=== PATIENT | male | born 1995 | race Caucasian/White ===

== ENCOUNTER 2019-04-24 16:50 | Inpatient (IN) ==
--- NOTE | 2019-04-24 17:25 | Emergency Department Note ---
Disposition Clinical Impression: Suicidal ideation Disposition: Admitted As Inpatient Condition: Fair Forms: ED Satisfaction Letter Time of Disposition: 21:55 General Adult HPI - General Chief complaint: ED Psychiatric Symptoms Stated complaint: SI Time Seen by Provider: 04/24/19 16:53 Source: patient, EMS Nursing Notes Reviewed: Yes Vital Signs Reviewed: Yes ( history:) - History of Present Illness HPI Narrative: Presents with suicidal ideation and planned to hang himself. He had suicidal ideation back in January. History of intravenous drug use but has not used in over 1 year. Was living with his aunt and uncle in [place] but now is living in a rehabilitation facility here to try to get off marijuana. Does have some visual and auditory hallucinations. He denies any pain in the head, neck, chest, ab domen or back. No unilateral numbness or weakness of the extremities, slurred speech, facial droop or confusion. Social history: Smoker Pain Scale: 0 - Related Data Home Medications Medication Instructions Recorded Confirmed Methocarbamol [Robaxin-750] 750 mg PO BID 05/05/15 05/05/15 Naproxen [Naprosyn] 500 mg PO BID 05/05/15 05/05/15 Sulfamethoxazole/Trimeth DS 1 each PO BID 05/05/15 05/05/15 [Bactrim DS] Previous Rx's Medication Instructions Recorded predniSONE [PredniSONE] 40 mg PO DAILY 5 Days tablet 05/05/15 Allergies Allergy/AdvReac Type Severity Reaction Status Date / Time codeine Allergy Hives Verified 05/05/15 10:15 All systems ED: reviewed and negative except as stated. Past Medical History - Past Medical History Medical history: Reports: no medical history Surgical history: Reports: herniorrhaphy Psychiatric history: Reports: anxiety, bipolar, depression, panic disorder, PTSD, prior suicide attempt - Social History Smoking Status: Current every day smoker Smokeless Tobacco Status: No Alcohol use: Reports: none Drug use: Reports: marijuana Physical Exam CONSTITUTIONAL: Alert and oriented X3, well-nourished, well appearing, in no apparent distress HEAD: Normocephalic; atraumatic. EYES: PERRL, no scleral icterus. NOSE: The nose is normal in appearance without rhinorrhea RESP: Normal chest excursion with respiration; breath sounds clear and equal bilaterally; no wheezes, rhonchi, or rales CARD: Regular rhythm, without murmurs, rub or gallop ABD: Non-distended; non-tender, soft,without rigidity, rebound or guarding SKIN: Normal for age and race; warm and dry; no apparent lesions - General General appearance: alert Course Vital Signs Temperature 98.3 F 04/24/19 17:09 Pulse Rate 86 04/24/19 17:09 Respiratory Rate 17 04/24/19 17:09 Blood Pressure 120/81 04/24/19 17:09 O2 Sat by Pulse Oximetry 100 04/24/19 17:09 Temperature 98.3 F 04/24/19 17:09 Pulse Rate 86 04/24/19 17:09 Respiratory Rate 17 04/24/19 17:09 Blood Pressure 120/81 04/24/19 17:09 O2 Sat by Pulse Oximetry 100 04/24/19 17:09 Oxygen Delivery Oxygen Delivery Room Air Medical Decision Making - MDM Narrative Medical decision making narrative: Psychiatric labs are ordered, patient has had issues both with substance abuse as well as mental health issues. We will consult [facility] to see the patient after the results return but the patient is acutely suicidal at this time per he does have a sitter at the room. 1725 I did speak with 1A and they will like the patient admitted here under their service. 2155 - Medical Records Medical records reviewed: Yes I reviewed the patient's medical records. - Lab Data Lab results reviewed: Yes I reviewed the patient's lab results. Result diagrams: 04/24/19 17:29 04/24/19 17:29 Lab Results 04/24/19 04/24/19 04/24/19 Range/Units 17:21 17:21 17:29 WBC 7.5 (4.3-11.1) K/mcL RBC 4.19 (4.19-5.50) M/mcL Hgb 14.0 (12.9-16.9) g/dL Hct 40.9 (37.5-50.1) % MCV 97.6 (83.0-100.0) fL MCH 33.4 H (28.0-33.3) pg MCHC 34.2 (31.6-35.5) g/dL RDW 13.2 (11.5-14.5) % Plt Count 183 (140-400) K/mcL MPV 10.6 (9.4-12.4) fL Immature Gran % 0.3 (0-4) % Seg Neutrophils % 50.3 % Lymphocytes % 39.0 % Monocytes % 8.8 % Eosinophils % 1.3 % Basophils % 0.3 % Neutrophils # 3.8 (1.6-8.9) K/mcL Lymphocytes # 2.9 (0.6-4.6) K/mcL Monocytes # 0.7 (0.0-1.3) K/mcL Eosinophils # 0.1 (0.0-0.6) K/mcL Basophils # 0.0 (0.0-0.2) K/mcL Sodium (136-145) mEq/L Potassium (3.5-5.1) mEq/L Chloride (98-107) mEq/L Carbon Dioxide (23-29) mEq/L BUN (6-20) mg/dL Creatinine (0.70-1.30) mg/dL Est GFR ( Amer) (> 60) Est GFR (Non-Af Amer) (> 60) BUN/Creatinine Ratio (6-26) Glucose (70-105) mg/dL Calculated Osmolality (280-300) Calcium (8.6-10.3) mg/dL Urine Color Yellow (Yellow) Urine Clarity Turbid A (Clear) Urine pH 7.5 (5.0-8.0) pH Units Ur Specific [place] 1.025 (1.010-1.025) Urine Protein Negative (Neg-Trace) mg/dL Urine Glucose (UA) Normal (Normal) mg/dL Urine Ketones Negative (Negative) mg/dL Urine Blood Negative (Negative) Urine Nitrite Negative (Negative) Urine Bilirubin Negative (Negative) Urine Urobilinogen Normal (Normal) mg/dL Ur Leukocyte Esterase Negative (Negative) Urine Microscopic RBC 0-3 (0-3) per hpf Urine Microscopic WBC 0-3 (0-3) per hpf Ur Squamous Epith Cells Few (None-Few) per lpf Urine Bacteria None Seen (None-Few) per hpf Hyaline Casts None Seen (None-Few) per lpf Salicylates (15.0-30.0) mg/dL Urine Opiates Screen Negative (Dylymg=844) ng/mL Ur Buprenorphine Scrn Negative (Cutoff=5) ng/mL Acetaminophen (10-20) mcg/mL Ur Barbiturates Screen Negative (Omuvhk=068) ng/mL Ur Phencyclidine Scrn Negative (Cutoff=25) ng/mL Ur Amphetamines Screen Negative (Lwaqdy=1924) ng/mL U Benzodiazepines Scrn Negative (Pmdxvx=628) ng/mL Urine Cocaine Screen Negative (Cutoff= 300) ng/mL U Marijuana (THC) Screen Positive H (Cutoff = 50) ng/mL Ur Drug Screen Interp See Below Ethyl Alcohol (Less than 10) mg/dL 04/24/19 Range/Units 17:29 WBC (4.3-11.1) K/mcL RBC (4.19-5.50) M/mcL Hgb (12.9-16.9) g/dL Hct (37.5-50.1) % MCV (83.0-100.0) fL MCH (28.0-33.3) pg MCHC (31.6-35.5) g/dL RDW (11.5-14.5) % Plt Count (140-400) K/mcL MPV (9.4-12.4) fL Immature Gran % (0-4) % Seg Neutrophils % % Lymphocytes % % Monocytes % % Eosinophils % % Basophils % % Neutrophils # (1.6-8.9) K/mcL Lymphocytes # (0.6-4.6) K/mcL Monocytes # (0.0-1.3) K/mcL Eosinophils # (0.0-0.6) K/mcL Basophils # (0.0-0.2) K/mcL Sodium 140 (136-145) mEq/L Potassium 3.9 (3.5-5.1) mEq/L Chloride 107 (98-107) mEq/L Carbon Dioxide 29 (23-29) mEq/L BUN 13 (6-20) mg/dL Creatinine 0.89 (0.70-1.30) mg/dL Est GFR ( Amer) > 60 (> 60) Est GFR (Non-Af Amer) > 60 (> 60) BUN/Creatinine Ratio 15 (6-26) Glucose 97 (70-105) mg/dL Calculated Osmolality 290 (280-300) Calcium 8.8 (8.6-10.3) mg/dL Urine Color (Yellow) Urine Clarity (Clear) Urine pH (5.0-8.0) pH Units Ur Specific [place] (1.010-1.025) Urine Protein (Neg-Trace) mg/dL Urine Glucose (UA) (Normal) mg/dL Urine Ketones (Negative) mg/dL Urine Blood (Negative) Urine Nitrite (Negative) Urine Bilirubin (Negative) Urine Urobilinogen (Normal) mg/dL Ur Leukocyte Esterase (Negative) Urine Microscopic RBC (0-3) per hpf Urine Microscopic WBC (0-3) per hpf Ur Squamous Epith Cells (None-Few) per lpf Urine Bacteria (None-Few) per hpf Hyaline Casts (None-Few) per lpf Salicylates < 2.5 L (15.0-30.0) mg/dL Urine Opiates Screen (Uehxof=423) ng/mL Ur Buprenorphine Scrn (Cutoff=5) ng/mL Acetaminophen < 10 L (10-20) mcg/mL Ur Barbiturates Screen (Bjwywj=952) ng/mL Ur Phencyclidine Scrn (Cutoff=25) ng/mL Ur Amphetamines Screen (Mhrzbd=9911) ng/mL U Benzodiazepines Scrn (Jxukzv=198) ng/mL Urine Cocaine Screen (Cutoff= 300) ng/mL U Marijuana (THC) Screen (Cutoff = 50) ng/mL Ur Drug Screen Interp Ethyl Alcohol < 10 (Less than 10) mg/dL
[2019-04-24 17:48] LABS: Bilirubin,Urine Negative (Negative); Blood,Urine Negative (Negative); Clarity,Urine Turbid (Clear); Color,Urine Yellow (Yellow); Glucose,Urine (UA) Normal (Normal); Ketones,Urine Negative (Negative); Leukocyte Esterase,Urine Negative (Negative); Nitrite,Urine Negative (Negative); PH,Urine 7.5 pH Units (5.0-8.0); Protein,Urine Negative (Neg-Trace); Specific Gravity,Urine 1.025 (1.010-1.025); Urobilinogen,Urine Normal (Normal)
[2019-04-24 17:49] LABS: Bacteria,Urine None Seen per hpf (None-Few); Hyaline Casts,Urine None Seen per lpf (None-Few); RBC,Urine 0-3 per hpf (0-3); Squamous Epithelial Cell,Urine Few per lpf (None-Few); WBC,Urine 0-3 per hpf (0-3)
[2019-04-24 17:49] LABS: Basophils % 0.3 %; Eosinophils # 0.1 K/mcL (0.0-0.6); Eosinophils % 1.3 %; Hematocrit 40.9 % (37.5-50.1); Immature Granulocytes % 0.3 % (0-4); Lymphocytes # 2.9 K/mcL (0.6-4.6); Mean Corpuscular HGB Conc 34.2 g/dL (31.6-35.5); Mean Corpuscular Hemoglobin 33.4 pg (28.0-33.3); Mean Corpuscular Volume 97.6 fL (83.0-100.0); Mean Platelet Volume 10.6 fL (9.4-12.4); Monocytes # 0.7 K/mcL (0.0-1.3); Monocytes % 8.8 %; Neutrophils # 3.8 K/mcL (1.6-8.9); Platelet Count 183 K/mcL (140-400); Red Blood Count 4.19 M/mcL (4.19-5.50); Red Cell Distribution Width 13.2 % (11.5-14.5); Segmented Neutrophils % 50.3 %; White Blood Count 7.5 K/mcL (4.3-11.1)
[2019-04-24 18:06] LABS: Amphetamine Screen,Urine Negative ng/mL (Cutoff=1000); Barbiturate Screen,Urine Negative ng/mL (Cutoff=200); Benzodiazepines Screen,Urine Negative ng/mL (Cutoff=200); Cannabinoid Screen,Urine Positive ng/mL (Cutoff = 50); Cocaine Screen,Urine Negative ng/mL (Cutoff= 300); Opiate Screen,Urine Negative ng/mL (Cutoff=300); Phencyclidine Screen,Urine Negative ng/mL (Cutoff=25)
[2019-04-24 18:08] LABS: Acetaminophen < 10 mcg/mL (10-20); BUN/Creatinine Ratio 15 (6-26); Blood Urea Nitrogen 13 mg/dL (6-20); Calcium 8.8 mg/dL (8.6-10.3); Carbon Dioxide 29 mEq/L (23-29); Chloride 107 mEq/L (98-107); Ethanol < 10 mg/dL (Less than 10); Glucose 97 mg/dL (70-105); Osmolality,Calculated 290 (280-300); Potassium 3.9 mEq/L (3.5-5.1); Salicylate < 2.5 mg/dL (15.0-30.0); Sodium 140 mEq/L (136-145); eGFR For African Americans > 60 (> 60); eGFR For Non-African Americans > 60 (> 60)
[2019-04-25] MEDS ORDERED: *HR* LORazepam 2 MG/ML VIAL IM PRN (03:15)
[2019-04-25] MEDS ORDERED: *HR* LORazepam 1 MG TABLET PO PRN (03:18)
[2019-04-25] MEDS ORDERED: Haloperidol Lactate 5 MG/ML VIAL IM PRN (03:23)
[2019-04-25] MEDS ORDERED: MOM Conc 10 ML UD.LIQ PO PRN (03:33)
[2019-04-25] MEDS ORDERED: Mag Hydrox/Al Hydrox/Simeth 30 ML UDC PO PRN (03:35)
[2019-04-25] MEDS ORDERED: hydrOXYzine pamoate 25 MG CAPSULE PO PRN (03:47)
[2019-04-25] MEDS ORDERED: Acetaminophen 325 MG TABLET PO PRN (03:51)
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
[2019-04-25] MEDS: Nicotine 2 MG GUM BC PRN ×3 (11:36→21:09)
[2019-04-25] MEDS: Mirtazapine 15 MG TABLET PO SCH (20:53)
[2019-04-26] MEDS: Nicotine 2 MG GUM BC PRN ×5 (08:56→18:56)
--- NOTE | 2019-04-26 10:13 | Psychiatry Progress Note ---
Date of Encounter: 04/26/19 Time of Encounter: 10:06 Subjective Interval history: Client reports he is feeling better. Looks better. He has more affect. Smiling some today. Looking forward to the football games this afternoon. Denies SI. Still depressed and anxious but already seems to be turning the corner and able to recognize the improvements himself. Wants to return to his mother's house at the time of discharge. However, client states his mother wants him to transfer to a fpc mental health unit in [place]. Discussed how mental health units are not meant to be fpc anymore and that he could not just transfer from one inpatient mental health unit to another. Th is seemed to help client relax as he clearly does not want to go to a different facility or be put somewhere for fpc care. Client also said his mother wants him to apply for short term disability. Client states he wants to work. "It gives me purpose." He is definitely capable of working. Client admits when he returned from [place] all he did was lay on his mother's couch and that he was unmotivated to do anything, including work. However, he states as he is feeling better he sees more possibilities. This commercial real estate underwriter and client tried to call his mother twice this morning but she did not answer. Will try again tomorrow. Review of Systems Constitutional: Denies: fever, chills, weakness, weight change Eyes: Denies: eye pain, vision change Ears, Nose, Throat: Denies: ear pain, throat pain, dental pain, hearing loss, congestion Cardiovascular: Denies: chest pain, palpitations, dyspnea on exertion Respiratory: Denies: cough, dyspnea, wheezes Gastrointestinal: Denies: abdominal pain, nausea, vomiting, diarrhea, constip ation Musculoskeletal: Denies: joint swelling, joint pain Neurological: Denies: headache, weakness, numbness, memory loss Psychiatric: Reports: depression, anxiety, suicidal ideation, change in appetite, visual hallucinations (questionable), other (low energy, paranoia). Denies: anhedonia, difficulty concentrating Results - Vital Signs Vital Signs: Temp Pulse Resp BP Pulse Ox 98.6 F 80 18 113/76 98 04/25/19 20:58 04/25/19 20:58 04/25/19 20:58 04/25/19 20:58 04/25/19 20:58 Assessment and Plan (1) Bipolar disorder Current visit: Yes Status: Acute Plan: Continue hospitalization, Close observation, Suicide Precautions per unit protocol, Encourage participation in unit milieu, Group Therapy, Monitor sleep, Monitor appetite Risks, benefits, side effects, alternatives discussed w/pt: Yes Patient agreeable to treatment: Yes Qualifiers: Active/Remission status: remission status unspecified Qualified Code(s): F31.9 - Bipolar disorder, unspecified Consult Discharge Plan - Plan Referrals: Sloane Edouard CNP [Primary Care Provider] - Psychiatry Exam - Constitutional Vitals: Temp Pulse Resp BP Pulse Ox 98.6 F 80 18 113/76 98 04/25/19 20:58 04/25/19 20:58 04/25/19 20:58 04/25/19 20:58 04/25/19 20:58 General appearance: age & developmentally appropriate, well-groomed, well- nourished - Musculoskeletal Gait: normal Station: relaxed Strength & Tone: normal for patient - Psychiatric Patient Orientation: Yes Person, Yes Time, Yes Place Level of alertness: Alert Behavior: calm, cooperative Psychomotor activity: Normal Eye Contact: Maintains Eye Contact Mood Description: Depressed, Anxious Affect description: congruent with mood, full range Speech Volume: Normal Speech pattern: normal rate, normal rhythm, normal tone, fluent, spontaneous Language & Vocabulary: consistent with education Thought Process: Linear, Goal Oriented Thought Content: No Suicidal ideation, No Homicidal ideation, No Overt delusions Perceptual Disturbances: No Auditory hallucinations, No Visual hallucinations Attention Span Ability: Capable of Focused Attention Memory Description: Grossly Intact Patient Reliability: Reliable Historian Fund of knowledge: Yes abstraction ability, Yes aware of current events Intelligence Estimate: Average Judgment: Fair Insight: Partial
[2019-04-26] MEDS: Mirtazapine 15 MG TABLET PO SCH (20:56)
[2019-04-27] MEDS: Nicotine 2 MG GUM BC PRN ×5 (09:04→21:55)
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
[2019-04-27] MEDS: Mirtazapine 15 MG TABLET PO SCH (20:18)
[2019-04-28] MEDS: Nicotine 2 MG GUM BC PRN ×4 (08:56→21:22)
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
[2019-04-28 21:18] VITALS: BP 121/76
[2019-04-28] MEDS: Mirtazapine 15 MG TABLET PO SCH (21:21)
[2019-04-29] MEDS: Nicotine 2 MG GUM BC PRN ×3 (10:15→14:36)
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
== END 2019-04-29 14:50 | DRG 753 ==
LOC: 1ANU 16:50 → EMEROOARM 16:50 → 1ANU 04-25 00:45 → SUATTDRO 04-25 18:00 → 1ANU 04-26 08:57
PROVIDERS: ADMIT Psychiatry & Neurology Psychiatry; ATTEND Psychiatry & Neurology Psychiatry